=== PATIENT | male | born 1990 | race African-American/Black ===

== ENCOUNTER 2020-07-14 15:11 | Emergency (ER) | payer OTHER, SELFPAY ==
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
[2020-07-14 15:08] VITALS: BP 134/86; PULSE 65; RESP 16; TEMP 36.9; O2SAT 99
[2020-07-14] MEDS: IBUPROFEN 600 MG TABLET PO (15:50)
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
[2020-07-14 16:54] VITALS: BP 132/89; PULSE 65; RESP 16; TEMP 36.6; O2SAT 100
== END 2020-07-14 16:54 | disposition home or self-care (01) ==
PROVIDERS: Emergency Provider Emergency Medicine
DX: S16.1XXA Strain of muscle, fascia and tendon at neck level, initial encounter (principal); M54.9 Dorsalgia, unspecified; V43.52XA Car driver injured in collision with other type car in traffic accident, initial encounter
CPT/HCPCS: 71045; 72072; 72125; 99284; A9270